=== PATIENT | male | born 1995 | race Caucasian/White ===

== ENCOUNTER 2017-01-06 20:17 | Emergency (ER) | payer OTHER ==
[~2017-01-06] VITALS: Ht 170.2 cm; Wt 67.6 kg
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
[2017-01-06 20:49] LABS: ABSOLUTE BASOPHIL COUNT 0.1 /CUMM (0.0-0.2); ABSOLUTE EOSINOPHIL COUNT 0.1 /CUMM (0.0-0.7); ABSOLUTE GRANULOCYTE CT 8.4 /CUMM (1.4-6.5); ABSOLUTE LYMPH COUNT 2.4 /CUMM (1.2-3.4); ABSOLUTE MONOCYTE COUNT 0.6 /CUMM (0.10-0.60); BASOPHIL % 0.4 % (0.0-2.0); EOSINOPHIL % 1.2 % (0-5); GRANULOCYTE % 72.6 % (42.2-75.2); HEMATOCRIT 40.6 % (42-52); MEAN CORPUSCULAR HGB 28.5 PG (27.0-31.0); MEAN CORPUSCULAR HGB CONC 32.7 G/DL (33.0-37.0); MEAN PLATELET VOLUME 7.2 FL (7.4-10.4); PLATELET COUNT 386 /CUMM (130-400); RBC DISTRIBUTION WIDTH 14.3 % (11.5-14.5); RED BLOOD CELL CT 4.66 /CUMM (4.70-6.10); WHITE BLOOD CELL COUNT 11.6 /CUMM (4.8-10.8)
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
[2017-01-07] MEDS ORDERED: PROZAC20 M2 PO (09:56)
[2017-01-07] MEDS ORDERED: ADDERALL 20 MG20 MG PO (09:57)
[2017-01-07] MEDS ORDERED: ADDERALL XR 3030 MG PO (09:57)
[2017-01-07] MEDS ORDERED: XANAX1 M1 PO (09:58)
--- NOTE | 2017-01-07 15:09 | ED PSYCH CRISIS CONSULTATION ---
Crisis Consult Basic Assessment Date of Consult: 01/07/17 Responsible Person/Accompanied By: Self Insurance Authorization: Insurance #1: Insurance name: OUT OF STATE [employer] Phone number: Policy number: [id number] Group number: [id number] Authorization number: ED Provider: Patient's ED Provider: JUAN CARLOS GARCIA DO Primary Care Physician: Patient's PCP: UNKNOWN PCP's Phone Number: Current Psychiatrist: Dr. Andre Parra Chief Complaint: ETOH/Drug Related Complaint Patient's Quote: " My mom thought I overdosed" Present Illness: Pt is a 21 year old single male was brought to the emergency room by his mother after an overdose. The patient was being transported from [facility] to [facility]. The patient mother stopped at a rest stop and went into the bathroom for over an hour. The mother reports the Pt was using drugs and found syringes in the car. This clinician met with the Pt who denied suicidal ideation, denied homicidal ideation, denied auditory hallucinations, and denied visual hallucinations. The staff at [facility] over heard the Pt making threatening statement to his mother on the phone. The Pt denied any homicidal thoughts to his mother and stated being mad regarding being brought to the emergency room. Pt presents at irritable, anxious, and focusing on being discharge from the emergency room. This clinician discussed with the Pt following up with [facility] treatment program. The Pt agreed to follow up with the [facility] treatment program. Patient's Address: [address] [place] [id number] Other Phone Number: Who Do You Live With? Mother Family/Informants Interviewed: Mother Roselyn Turner [phone] Allergies - Coded Allergies: No Known Drug Allergies (NKDA 01/06/17) Current Medications - Scheduled Medications Alprazolam (Xanax) 1 MG TABLET 1 TAB PO 4 TIMES/DAY ANXIETY (Reported) Entered as Reported by DEMETRIO CURIEL on 01/07/17 0958 Dextroamphetamine/Amphetamine (Adderall XR 30 MG Capsule) 30 MG CAP.ER.24H 1 CAP PO DAILY MENTAL HEALTH (Reported) Entered as Reported by DEMETRIO CURIEL on 01/07/17 0957 Dextroamphetamine/Amphetamine (Adderall 20 MG Tablet) 20 MG TABLET 1 TAB PO 1700 MENTAL HEALTH (Reported) Entered as Reported by DEMETRIO CURIEL on 01/07/17 0957 Fluoxetine HCl (Prozac) 20 MG CAPSULE 1 CAP PO QAM MENTAL HEALTH (Reported) Entered as Reported by DEMETRIO CURIEL on 01/07/17 0956 Laboratory Results: Laboratory Tests 01/06/17 2153: Urine Opiates Screen > 4000.00 H, Methadone Screen > 735 H, Barbiturate Screen < 60, Ur Phencyclidine Scrn 7.50, Amphetamines Screen < 100, U Benzodiazepines Scrn > 800 H, Urine Cocaine Screen 63, Urine Cannabis Screen 19.70 01/06/175: Anion Gap 12, Estimated GFR > 60, BUN/Creatinine Ratio 17.8, Glucose 121 H, Calcium 9.4, Total Bilirubin 0.5, AST 17, ALT 32, Alkaline Phosphatase 97, Total Protein 7.3, Albumin 4.2, Globulin 3.1, Albumin/Globulin Ratio 1.4, CBC w Diff NO MAN DIFF REQ, RBC 4.66 L, MCV 87.0, MCH 28.5, RDW 14.3, MPV 7.2 L, Gran % 72.6, Lymphocytes % 21.1, Monocytes % 4.7, Eosinophils % 1.2, Basophils % 0.4, Absolute Granulocytes 8.4 H, Absolute Lymphocytes 2.4, Absolute Monocytes 0.6, Absolute Eosinophils 0.1, Absolute Basophils 0.1, PUBS MCHC 32.7 L, Salicylates < 1.0, Acetaminophen < 10.0 L, Serum Alcohol < 10.0 Past History Past Medical History Neurological: SUB DURAL HEMATOMA Psychiatric: anxiety, depression, IV drug abuse, opioid dependence, substance abuse, ADHD Past Surgical History Surgical History: non-contributory Psychosocial History Strengths/Capabilities: Pt has a supportive family. Psychiatric Treatment History Psych Treatment Psychiatric Treatment No Inpatient Treatment No Outpatient Treatment No Location of Treatment none Reason for Treatment none Dates of Treatment none Response to Treatment none Diagnosis by History: Opioid Dependence Substance Use/Abuse History Drug Use/Abuse Substances Used/Abused Yes Substance Used/Abused Heroin First Use unknown Last Used 1 week ago How much used/taken a few bags. How often daily For how long unknown Route of use Intravenous Substance Abuse Treatment Substance Abuse Treatment Past Substance Abuse TX Yes Inpatient Treatment Yes Outpatient Treatment No Location of Treatment [place], [facility] Reason for Treatment Opiate use Dates of Treatment (1) week ago Response to Treatment poor relapse Current Mental Status Mental Status Orientation: Person, Place, Situation Affect: Angry, Depressed Speech: Pressured Neuro-vegetative: WNL Appearance Appearance- Dress/Hygiene: Dressed in hospital clothing Behaviors Thought Process: WNL Thought Content: WNL Memory: WNL Insight: Poor SI/HI Risk Assessment Past Suicidal Ideation/Attempts No Current Suicidal Ideation/Att No Past Homicidal Ideation/Att: No Current Homicidal Ideation/Attempts No Degree of Intent: None Danger To: Self Gravely Disabled: Lack of Insight, Poor Impulse Control, Poor Judgment Risk Factors: age (under 24/over 65), substance abuse, poor impulse control Lethality Ratin PTSD Checklist PTSD Score: PTSD Score: Response Value Disturbing memories,thoughts,images of stressful experience? Not at all 1 Disturbing dreams of stressful experience from past? Not at all 1 Suddenly acting/feeling as if reliving stressful experience? Not at all 1 Total 3 PTSD Done? patient declined ED Management Sitter: Yes Restraints: No DSM5/PS Stressors/Medical Prob Diagnosis' (DSM 5, Stressors, Medical): Opioid Dependence, Unspecified F11.20 Current GAF: 33 Comments: Pt presented to the [facility] room while being transported by his mother from detox to [facility] and overdosed in the gas station at a bathroom. Pt agreed to follow with [facility] substance abuse treatment. Departure Disposition Psych Medical Clearance Date: 01/07/17 Medically Cleared at: 1350 Time Started: 1350 Time Ended: 1450 Psychiatrist Consulted: Dr. Andre Parra Date Disposition Established: 01/07/17 Time Disposition Established: 1450 Plan for Disposition - Modality: Outpatient Facility: [facility] Treatment program Follow-up Appt Date: 01/07/17 Contact: Rationale for Disposition: Pt presents to the emergency room after overdose on drugs while being transported to [facility]. Pt treated and stayed over night. Pt willl follow up with [facility] treatment program. Type of IP Admission: Voluntary Referrals UNKNOWN (PCP/Family)
--- NOTE | 2017-01-07 15:13 | ED PSY CRISIS COLLATERAL NOTE ---
Collateral Note Collateral Note Family/Inform/Bruno Contacts: This clinician spoke with mother Roselyn Turner [phone] who reported the patient was being transported from [facility] to [facility]. The patient mother stopped at a rest stop and went into the bathroom for over an hour. The mother reports the Pt was using drugs and found syringes in the car. She reports the Pt has a long history of addiction.
[2017-01-07 15:59] VITALS: BP 132/80
== END 2017-01-07 16:20 ==
LOC: ERH 20:17
PROVIDERS: Emergency Medicine
DX: S42.252A Displaced fracture of greater tuberosity of left humerus, initial encounter for closed fracture (principal); T42.4X1A Poisoning by benzodiazepines, accidental (unintentional), initial encounter; X58.XXXA Exposure to other specified factors, initial encounter
CPT/HCPCS: 73030-LT; 80307; 93005; 93010; G0463; G0480; J3101